=== PATIENT | female | born 1955 | race Caucasian/White ===

== ENCOUNTER 2017-03-10 15:04 | Outpatient (CLI) | payer BC ==
--- NOTE | 2017-03-21 15:26 | MMO ---
BILATERAL DIGITAL SCREENING MAMMOGRAMS: Date: 03/10/17 HISTORY: 61-year-old female presents for digital screening mammogram. COMPARISON: 01/28/16, 01/03/15, 06/15/13, 06/02/12. FINDINGS: This patient's mammogram was interpreted with the assistance of computer-aided detection. Scattered areas of fibroglandular density are noted bilaterally. Stable typically benign calcificatio ns. No direct or indirect evidence of malignancy. IMPRESSION: BIRADS 2: Benign Finding(s) Continue routine screening. POS: [facility]
== END 2017-03-10 15:05 | disposition home or self-care (01) ==
LOC: SCSMAMMO 15:04
PROVIDERS: ATTEND Internal Medicine
DX: Z12.31 Encounter for screening mammogram for malignant neoplasm of breast (principal)
CPT/HCPCS: 77067; G0202